=== PATIENT | female | born 1985 | race Caucasian/White ===

== ENCOUNTER 2017-04-11 21:41 | Emergency (ER) | payer OTHER ==
[~2017-04-11] VITALS: Ht 167.6 cm; Wt 56.8 kg
[~2017-04-11 21:41] MED LIST: CIPRO 500MG TA500 MG PO; DICLOXACILLIN500 MG PO; NO HOME MEDICATIONS; PRENATAL1 TA5; PYRIDIUM 100MG100 MG PO; ZOFRAN ODT4 MG PO
[2017-04-11 21:47] VITALS: BP 128/83; TEMP 98.9
[2017-04-11 23:01] VITALS: PULSE 74
== END 2017-04-11 23:03 | disposition home or self-care (01) ==
LOC: COL.ER 21:41
DX: S93.601A Unspecified sprain of right foot, initial encounter (principal); X50.0XXA Overexertion from strenuous movement or load, initial encounter; Y92.830 Public park as the place of occurrence of the external cause